=== PATIENT | female | born 1970 | race Caucasian/White ===

== ENCOUNTER 2023-09-14 01:28 | Inpatient (IN) ==
--- NOTE | 2023-09-14 01:57 | Emergency Department Note ---
History of Present Illness General Chief complaint: Abdominal Pain Stated complaint: ABD PAIN Time Seen by Provider: 09/14/23 01:43 History of Present Illness Maximum Pain Intensity: 10 This 53-year-old female who states she is healthy with no active medical problems presents the ER complaining of epigastric pain tonight who had pizza and ice cream cake for dinner. No history of similar symptoms in the past. She had a hysterectomy in the past. Patient denies chest pain, dyspnea, fever, chills, flank pain, radiating pain. Home Medications Medication Instructions Recorded Confirmed Type tirzepatide 10 mg/0.5 mL 10 mg subcut DIRECTED 09/14/23 09/14/23 History subcutaneous pen injector (Mounjaro) Allergies Allergy/AdvReac Type Severity Reaction Status Date / Time No Known Allergies Allergy Unknown Verified 09/14/23 03:14 Past Med/Surg History Social History Smoking Status: Never smoker Preferred Language: Belgian Feels Safe at Home: Yes Review of Systems A total of 10 systems reviewed and were otherwise negative Physical Exam Vital Signs Vital Signs - 24 hr 09/14/23 01:30 09/14/23 01:50 Temperature 36.8 C Temperature Source Temporal Artery Scan Pulse Rate 94 H 96 H Respiratory Rate 18 Respiratory Effort / Characteristics Non-Labored Spontaneous Respiratory Depth Normal Blood Pressure 154/94 H Blood Pressure Mean 114 Pulse Oximetry 100 Oxygen Delivery Method Room Air Sepsis Recent Fever Within 48 Hours No Sepsis New/Unexplained Change in Mental Status No Sepsis Action Taken by Nursing No Action Required VITALS: Vitals are noted on the nurse's note and reviewed by myself. Vital signs stable. GENERAL: Pleasant female, in no acute distress, nondiaphoretic, well-developed well-nourished. SKIN: Capillary reflex less than 2 seconds. HEENT: Normocephalic. PERRLA. EOMI. Nares patent. Mucous membranes moist. Neck is supple without nuchal rigidity. HEART: Regular rate and rhythm LUNGS: Clear to auscultation bilaterally without wheezes, rales or rhonchi. No retractions or accessory muscle use. ABDOMEN: Positive bowel sounds x 4. Normal tympanic percussion. Soft, tender to palpation epigastric region, without masses or organomegaly. No guarding or rebound tenderness. no CVA tenderness MUSCULOSKELETAL: No gross musculoskeletal defects. NEURO: Patient was alert and oriented to person place and time. No focal neurological deficits. Course Administered Medications Discontinued Medications Famotidine (Pepcid 20mg Iv Push) 20 mg in 5 mls @ 2.5 mls/min IV NOW STA Stop: 09/14/23 01:49 Last Admin: 09/14/23 01:58 Dose: 2.5 mls/min Documented By: HARDEEP Sodium Chloride (Nss) 1,000 mls @ 999 mls/hr IV .Q1H1M ONE Stop: 09/14/23 02:48 Last Admin: 09/14/23 01:59 Dose: 999 mls/hr Documented By: HARDEEP Morphine Sulfate (Morphine Sulfate 4 Mg/Ml 1 Ml Carp\\Vial) 4 mg IV NOW STA Stop: 09/14/23 01:49 Last Admin: 09/14/23 01:58 Dose: 4 mg Documented By: HARDEEP Morphine Sulfate (Morphine Sulfate 4 Mg/Ml 1 Ml Carp\\Vial) 4 mg IV NOW STA Stop: 09/14/23 02:46 Last Admin: 09/14/23 02:49 Dose: 4 mg Documented By: HARDEEP Ondansetron HCl (Ondansetron Inj 2 Mg/Ml 2 Ml Vial) 4 mg IV NOW STA Stop: 09/14/23 01:49 Last Admin: 09/14/23 01:58 Dose: 4 mg Documented By: HARDEEP Medical Decision Making Medical Records Attestation: I reviewed the patient's medical records. Home Medications Current Medication List: was personally reviewed by me Laboratory Data Attestation: I reviewed the patient's lab results. 09/14/23 01:50 09/14/23 01:50 Lab Results 09/14/23 Range/Units 01:50 WBC 11.75 H (4.8-10.8) K/ul RBC 4.52 (4.20-5.40) M/uL Hgb 13.2 (12.0-16.0) g/dl Hct 39.8 (37.0-47.0) % MCV 88.1 (80.0-100.0) fL MCH 29.2 (25.0-34.0) pg MCHC 33.2 (32.0-36.0) g/dL RDW Std Deviation 45.8 (36.4-46.3) fL RDW Coeff of Liliana 14.2 (11.5-14.5) % Plt Count 248 (130-400) K/uL MPV 11.0 (9.4-12.4) fL Immature Gran % (Auto) 0.5 % Neut % (Auto) 75.8 % Lymph % (Auto) 16.4 % Pierce % (Auto) 4.7 % Eos % (Auto) 2.3 % Baso % (Auto) 0.3 % Neut # (Auto) 8.91 H (1.40-6.50) K/uL Lymph # (Auto) 1.93 (1.20-3.40) K/uL Pierce # (Auto) 0.55 (0.11-0.59) K/uL Eos # (Auto) 0.27 (0.00-0.50) K/uL Baso # (Auto) 0.03 (0.00-0.20) K/uL Immature Gran # (Auto) 0.06 (0.01-0.20) K/uL Sodium 136 (136-145) mmol/L Potassium 3.8 (3.5-5.1) mmol/L Chloride 106 (98-107) mmol/L Carbon Dioxide 23 (21-32) mmol/L Anion Gap 7 (3-11) BUN 18 (6-23) mg/dl Creatinine 0.72 (0.6-1.2) mg/dl Est Cr Clr Drug Dosing 91.7 ml/min Est GFR ( Amer) 110.8 ml/min Est GFR (Non-Af Amer) 95.6 ml/min BUN/Creatinine Ratio 25.0 H (10-20) Glucose 111 H (70-99(Fasting)) mg/dl Calcium 9.6 (8.6-10.3) mg/dl Total Bilirubin 0.5 (0.2-1.0) mg/dl AST 13 (13-39) U/L ALT 9 (7-52) U/L Alkaline Phosphatase 53 (34-104) U/L Troponin I High Sens 3.7 (0-14) pg/ml Total Protein 7.3 (6.0-8.3) gm/dl Albumin 4.7 (3.4-5.0) gm/dl Globulin 2.6 (2.5-4.0) gm/dl Albumin/Globulin Ratio 1.8 (0.9-2) Lipase 31 (11-82) U/L HCG, Qual Negative (Negative) Imaging Data Attestation: I personally reviewed and interpreted this imaging study as follows: Radiologist's Impression: Gallbladder Ultrasound 09/14/23 01:48 Exam(s): US GALLBLADDER EXAM: US Abdomen Limited, Gallbladder CLINICAL HISTORY: Reason for exam: ruq pain. TECHNIQUE: Real-time ultrasound of the right upper quadrant with image documentation. COMPARISON: No relevant prior studies available. FINDINGS: Gallbladder: Cholelithiasis trace pericholecystic fluid. Gallbladder wall is within normal limits. Gallbladder is distended. Common bile duct: Unremarkable as visualized. No stones. No dilation. Pancreas: Unremarkable as visualized. IMPRESSION: Findings equivocal for early acute cholecystitis. Clinical correlation recommended Electronically signed by: Ramon Hanson MD 09/14/23 03:29 AM MDM Narrative Prior records/ancillary studies reviewed. Triage Nursing notes reviewed. Additional history obtained from family. The patient's history was concerning for epigastric pain. Differential diagnosis: Etiologies such as cardiac ischemia, gallbladder, intra-abdominal, aortic dissection, pulmonary embolism, pneumonia, pneumothorax, musculoskeletal, infections, pericarditis, myocarditis, esophageal rupture, gastrointestinal, as well as others were entertained. Physical examination: As above. ER treatment provided: An order was placed for continuous cardiac monitoring. The monitor shows a rate of 60-100 with a sinus rhythm per my interpretation. Morphine, Zofran, Pepcid and IV fluids were ordered Mefoxin and morphine On reassessment the patient felt better. Diagnostic interpretation by me: The electrocardiogram was negative for pathologic change. Ordered for epigastric pain EKG: Normal sinus, normal intervals, no acute ST-T wave changes. Impression normal sinus rhythm independently interpreted by myself I think arrhythmia is unlikely. EKG shows normal sinus rhythm with no interval abnormalities such as QT prolongation or WPW. There are no findings to suggest Brugada syndrome. Cardiac monitoring in the emergency department reveals no tachycardic or bradycardic dysrhythmia. Hypertrophic cardiomyopathy was considered but there are no clear historical elements pointing toward this. EKG is not suggestive. The QRS voltage is not extremely large and there are no suggestive Q waves. The labs Independently Interpreted by myself revealed negative troponin, normal LFTs Mild leukocytosis Imaging studies: Chest x-ray with no acute consolidation, pneumothorax or free air per my independent interpretation Ultrasound concerning for acute cholecystitis HEART SCORE: Hx: high/mod/low suspicion: 0 ECG: ST depression/nonspecific changes/normal: 0 Age: Greater than 65/45-64/less than 45: 1 Risk factors: (Hypertension, hyperlipidemia, diabetes, coronary disease, tobacco use, cocaine use): 0 Troponin: Greater than 2 times normal limits/1-2 times normal limits/normal: 0 Total: 1 Consultation: A consultation was placed with the surgical midlevel, Anatoly. the case was discussed and diagnostics were reviewed. The patient was evaluated in the ER for further treatment. Exam and history seem consistent with acute cholecystitis. Surgery was consulted and evaluated the patient. Patient was admitted to their service. Patient started antibiotics. She is NPO. She is agreeable treatment plan of admission. By the evaluation outlined above emergent etiologies such as cardiac ischemia, aortic dissection, pulmonary embolism, pneumonia, pneumothorax, pericarditis, myocarditis, gastrointestinal, as well as others were deemed relatively unlikely. The pt informed about the findings as listed above. All questions were answered and pleased with the treatment. The chart was completed utilizing [employer]ish[employer] Speech voice recognition software. Grammatical errors, random word insertions, pronoun errors, and incomplete sentences are an occassional consequence of this system due to software limitations, ambient noise, and hardware issues. Any formal questions or concerns about the content, text, or information contained within the body of this dictation should be directly addressed to the physician diet assistant for clarification. Impression & Plan Acute cholecystitis Discharge Plan Visit Data Chief Complaint: Abdominal Pain Stated Complaint: ABD PAIN ED Provider: Nicole Paredes ED Midlevel Provider: Prachi Ochoa Discharge Problem: Acute cholecystitis Patient Disposition: Being Evaluated by Surgeon Condition: Good Forms Stand Alone Forms: [employer] Prescriptions Prescriptions: No Action Mounjaro 10 mg/0.5 mL pen injector 10 mg SUBCUT DIRECTED Rx Instructions: PER PT "WEANING OFF MEDICATION, HAVEN'T TAKEN FOR 2 WEEKS". Referrals Referrals: PCP,NO [Physician] -
[2023-09-14] MEDS: FAMOTIDINE 20MG IV PUSH 20 MG/5 ML SYR IV STA (01:58)
[2023-09-14] MEDS: MoRPHine SULFATE 4 MG/ML 1 ML CARP\\VIAL IV STA ×2 (01:58→02:49)
[2023-09-14] MEDS: ONDANSETRON INJ 2 MG/ML 2 ML VIAL IV STA (01:58)
[2023-09-14] MEDS: SODIUM CHLORIDE 0.9% 1,000 ML IV ONE (01:59)
[2023-09-14 02:17] LABS: Basophils # (auto) 0.03 K/uL (0.00-0.20); Basophils % (auto) 0.3 %; Eosinophils # (auto) 0.27 K/uL (0.00-0.50); Eosinophils % (auto) 2.3 %; Hematocrit (blood only) 39.8 % (37.0-47.0); Hemoglobin 13.2 g/dl (12.0-16.0); Immature Granulocytes # (auto) 0.06 K/uL (0.01-0.20); Immature Granulocytes % (auto) 0.5 %; Lymphocytes # (auto) 1.93 K/uL (1.20-3.40); Lymphocytes % (auto) 16.4 %; Mean Corpuscular Hemoglobin 29.2 pg (25.0-34.0); Mean Corpuscular Hgb Conc 33.2 g/dL (32.0-36.0); Mean Corpuscular Volume 88.1 fL (80.0-100.0); Monocytes # (auto) 0.55 K/uL (0.11-0.59); Monocytes % (auto) 4.7 %; Neutrophils # (auto) 8.91 K/uL (1.40-6.50); Neutrophils % (auto) 75.8 %; Platelet Count 248 K/uL (130-400); RDW Coefficient of Variation 14.2 % (11.5-14.5); RDW Standard Deviation 45.8 fL (36.4-46.3); Red Blood Count 4.52 M/uL (4.20-5.40); White Blood Count 11.75 K/ul (4.8-10.8)
[2023-09-14 02:26] LABS: Albumin Globulin Ratio 1.8 (0.9-2); Albumin Level 4.7 gm/dl (3.4-5.0); Bilirubin,Total 0.5 mg/dl (0.2-1.0); Calcium 9.6 mg/dl (8.6-10.3); Creatinine Clr Calc Pharmacy 91.7 ml/min; Est GFR (African American) 110.8 ml/min; Est GFR (Non-African American) 95.6 ml/min; Globulin 2.6 gm/dl (2.5-4.0); Potassium 3.8 mmol/L (3.5-5.1); Total Protein 7.3 gm/dl (6.0-8.3)
[2023-09-14 02:29] LABS: Pregnancy Test, Serum Negative (Negative)
[2023-09-14 02:59] LABS: Troponin I High Sensitivity 3.7 pg/ml (0-14)
--- NOTE | 2023-09-14 03:30 | Ultrasound Report ---
Exam(s): US GALLBLADDER EXAM: US Abdomen Limited, Gallbladder CLINICAL HISTORY: Reason for exam: ruq pain. TECHNIQUE: Real-time ultrasound of the right upper quadrant with image documentation. COMPARISON: No relevant prior studies available. FINDINGS: Gallbladder: Cholelithiasis trace pericholecystic fluid. Gallbladder wall is within normal limits. Gallbladder is distended. Common bile duct: Unremarkable as visualized. No stones. No dilation. Pancreas: Unremarkable as visualized. IMPRESSION: Findings equivocal for early acute cholecystitis. Clinical correlation recommended Electronically signed by: Ramon Hanson MD 09/14/23 03:29 AM
--- NOTE | 2023-09-14 03:54 | History & Physical Report ---
Date of Service September 14, 2023 Assessment & Plan (1) Acute cholecystitis: Plan: I discussed with the treating clinician emergency department and the patient be admitted to the surgical service. Will proceed as follows: Implement n.p.o. status provide analgesics provide antiemetics Provide IV fluid for hydration Follow serial labs Antibiotics in form of cefoxitin been initiated we will continue these It appears that the patient may benefit from cholecystectomy. She will be evaluated Dr. Conley morning of 09/14/2023 and a determination about timing of surgery will be made Additional recommendations will be made based on her clinical course as u nfolds SCDs were used for DVT prevention, no chemical means to lose ascertain when the timing of any planned surgery may occur She will be a level 1 full code History of Present Illness Chief Complaint: Abdominal pain Primary Care Provider: Marc Tobin MD This is a 53-year-old female who presented to the emergency department secondary to abdominal pain. She notes that the pain is primary located in the epigastric region and also the right upper quadrant. She notes that this happened several hours after eating her evening meal. She had associated nausea and vomiting but did not have any fevers. She notes that the pain did not radiate and she does not note any modifying factors other than it was relieved with some medicines administered in the emergency department. Asked patient if she has had any postprandial pain over the past several weeks to months which she denied. She has had prior abdominal surgeries in the form of 3 C-sections as well as a hysterectomy. Since arrival to hospital patient has had labs and imaging which independent reviewed. A chest x-ray did not show any evidence of pneumonia. An EKG showed sinus rhythm without changes indicative of acute ischemia. Patient had a gallbladder ultrasound. This showed cholelithiasis and trace pericholecystic fluid. There is no gallbladder wall thickening, however the gallbladder did appear distended. There is no biliary ductal dilatation. Interpreting radiologist felt that these findings potentially represent early acute cholecystitis. Labs include CBC white blood cell count was elevated 11.7. Hemoglobin, hematocrit, platelet count are all normal. Chemistry profile showed sodium and potassium along with BUN and creatinine were normal. There is no elevation of patient's LFTs or lipase. test was negative. At the time of my interview the patient did complain of some residual abdominal pain she was in no distress. Concerning past medical history she denies any medical problems Concerning past surgical history surgeries as listed above Concerning social history she does not smoke Allergies Allergy/AdvReac Type Severity Reaction Status Date / Time No Known Allergies Allergy Unknown Verified 09/14/23 03:14 Home Medications Medication Instructions Recorded Confirmed Type tirzepatide 10 mg/0.5 mL 10 mg subcut DIRECTED 09/14/23 09/14/23 History subcutaneous pen injector (Quiana) Past Med/Surg History Social History Smoking Status: Never smoker Second Hand Exposure: No; Do You Dip or Chew Tobacco: No; Tobacco Cessation Education Requested by Patient: No Hx Alcohol Use: Yes Hx Substance Use: No Preferred Language: Tuvaluan Communication Ability: Effective Servicing Manager Required: No Beliefs That Will Affect Care: None Current Living Situation: Spouse Other Information That Helps Us Care for You: No Feels Safe at Home: Yes Safety Concerns: Feels Safe At This Time Assistive Devices: Glasses Review of Systems Constitutional: no fever and no chills Ear, Nose, Mouth, Throat: no hearing loss Respiratory: no cough and no dyspnea Cardiovascular: no chest pain Gastrointestinal: + abdominal pain, + nausea and + vomitin g Genitourinary: no dysuria Musculoskeletal: no back pain Integumentary: no rash Neurologic: no localized weakness Physical Exam Constitutional: WD/WN, vitals as above Eyes: + anicteric sclerae ENMT: Ears: no hearing impairment and no external ear abnormality Neck: trachea midline Respiratory: normal respiratory effort; no respiratory distress and no labored breathing Cardiovascular: Rate/Rhythm: regular rate and regular rhythm Gastrointestinal (Abdomen): Abdomen is soft and nonrigid. It is nondistended. There is no rebound tenderness or guarding. Patient did have pain with palpation in the epigastric area and also the right upper quadrant. Musculoskeletal: No calf tenderness Skin: no rashes Neurologic: moves all extremities Psychiatric: A+Ox3, euthymic affect Results & Data Results & Data Vital Signs (Past 12 Hours) Vital Signs Temp Pulse Resp BP Pulse Ox O2 Del Method 09/14/23 01:50 96 H 09/14/23 01:30 36.8 C 94 H 18 154/94 H 100 Room Air Supervising Physician Co-Signing Physician Notes See today's progress note for full details. Admitted with suspicion for cholecystitis, plan for laparoscopic cholecystectomy, possible robotic PG Care Time/CCT Total # of Minutes Spent Total Time Spent with Patient: Total time spent is greater than 50% in coordination of care (as documented) at patient's floor/unit and/or counseling patient: Coding Level of Care Code 04588 INT INP/OBS CARE 375MIN Diagnoses Acute cholecystitis K81.0
[2023-09-14] MEDS: MoRPHine SULFATE 4 MG/ML 1 ML CARP\\VIAL IV PRN (04:33)
[2023-09-14] MEDS: cefOXitin 2,000 MG/60 ML BAG IV STA (04:34)
[2023-09-14] MEDS: ONDANSETRON INJ 2 MG/ML 2 ML VIAL IV PRN (04:34)
[2023-09-14 04:55] LABS: Appearance Urine Clear (Clear); Bilirubin Urine Negative (Negative); Blood Urine Negative (Negative); Color Urine Yellow; Glucose Urine UA Negative (Negative); Ketones Urine Trace (Negative); Leukocyte Esterase Urine Negative (Negative); Nitrite Urine Negative (Negative); Protein Urine Negative (Negative); Specific Gravity Urine 1.014 (1.000-1.030); Urobilinogen Urine Negative (Negative)
[2023-09-14] MEDS: SODIUM CHLORIDE 0.9% 1,000 ML IV SCH (05:09)
[2023-09-14 06:22] LABS: Basophils # (auto) 0.04 K/uL (0.00-0.20); Basophils % (auto) 0.3 %; Eosinophils # (auto) 0.09 K/uL (0.00-0.50); Eosinophils % (auto) 0.8 %; Hematocrit (blood only) 36.3 % (37.0-47.0); Hemoglobin 12.1 g/dl (12.0-16.0); Immature Granulocytes # (auto) 0.05 K/uL (0.01-0.20); Immature Granulocytes % (auto) 0.4 %; Lymphocytes # (auto) 1.41 K/uL (1.20-3.40); Lymphocytes % (auto) 11.9 %; Mean Corpuscular Hemoglobin 29.4 pg (25.0-34.0); Mean Corpuscular Hgb Conc 33.3 g/dL (32.0-36.0); Mean Corpuscular Volume 88.1 fL (80.0-100.0); Mean Platelet Volume 10.8 fL (9.4-12.4); Monocytes # (auto) 0.59 K/uL (0.11-0.59); Neutrophils # (auto) 9.69 K/uL (1.40-6.50); Neutrophils % (auto) 81.6 %; Platelet Count 204 K/uL (130-400); RDW Standard Deviation 45.2 fL (36.4-46.3); Red Blood Count 4.12 M/uL (4.20-5.40); White Blood Count 11.87 K/ul (4.8-10.8)
[2023-09-14 06:35] LABS: Albumin Globulin Ratio 1.8 (0.9-2); BUN Creatinine Ratio 20.6 (10-20); Bilirubin,Total 0.4 mg/dl (0.2-1.0); Calcium 8.6 mg/dl (8.6-10.3); Creatinine Clr Calc Pharmacy 96.8 ml/min; Est GFR (African American) 115.7 ml/min; Est GFR (Non-African American) 99.9 ml/min; Globulin 2.2 gm/dl (2.5-4.0); Potassium 4.4 mmol/L (3.5-5.1); Total Protein 6.2 gm/dl (6.0-8.3)
--- NOTE | 2023-09-14 07:18 | XRay Report ---
XR chest 1V portable HISTORY: 53 years-old Female epi pain acute chest and upper abdominal pain COMPARISON: 09/23/2012 TECHNIQUE: AP view of the chest FINDINGS: Cardiomediastinal and hilar silhouettes are within normal limits. No pneumothorax, pleural effusion o r airspace consolidation. Bones of the chest appear grossly intact. IMPRESSION: No acute process. ACT 112: Negative or not required by law. The above report was generated using voice recognition software. It may contain grammatical, syntax o r spelling errors. Electronically signed by: Hunter Brown M.D. 09/14/2023 7:16 AM
--- OUTSIDE RECORDS SUMMARY | 2023-09-14 08:09 | External Medical Summary | Summary of Care ---
Author Name Unknown Organization [facility] Address [address] [facility] [address] Phone [phone] Care Team Providers Care Carton Forming Machine Tender Name Role Phone Marc Tobin MD Primary Care Provider [phone] Reason for Visit * Reason Onset Date Comments Medication Refill 05/09/2023 Encounter Details Date Type Department Care Team Description [facility]23 [facility] [address] [id number] Marc Tobin MD [address] [place] [address] Medication Refill Allergies No known active allergiesdocumented as of this encounter (statuses as of 05/10/2023) Medications Medication Sig Dispensed Refills Start Date End Date Status Clindamycin Phosphate 1 % External GelIndications:H/O acne,Acne scarring Apply to face in morning as spot treatment to larger acne lesions as instructed on checkout sheet 30 g 2 12/02/2020 Active Ondansetron HCl 4 MG Oral TabletIndications:N ausea Take by mouth 1 Tablet every 12 hours as needed for Nausea. 30 Tablet 1 09/30/2021 Active Tretinoin 0.1 % External CreamIndications:Ac ne vulgaris Apply to face every night. 45 g 5 04/25/2022 Active Phentermine HCl 37.5 MG Oral TabletIndications:O besity, Class I, BMI 30.0-34.9 (see actual BMI) Take 1 Tablet by mouth daily before breakfast. Not to be taken longer than 12 weeks. 30 Tablet 1 10/02/2022 Active Spironolactone 50 MG Oral Tablet (Aldactone) TAKE 1 TABLET BY MOUTH TWICE DAILY WITH OR WITHOUT FOOD 60 Tablet 3 10/23/2022 Active Mounjaro 10 MG/0.5ML Subcutaneous Solution Pen-injector (Tirzepatide) Inject 10 mg under the skin once a week. 2 mL 11 04/19/2023 04/18/2024 Active Mounjaro 7.5 MG/0.5ML Subcutaneous Solution Pen-injector (Tirzepatide) Inject 7.5 mg under the skin once a week. 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 10/04/2006 ADJ DISORDER W/DEPRES MOOD 12/21/2004 Other acne 11/10/2003 documented as of this encounter (statuses as of 05/10/2023) Resolved Problems Problem Noted Date Resolved Date Simple endometrial hyperplasia without atypia 07/04/2012 Simple endometrial hyperplasia without atypia 09/29/2020 Internal hemorrhoids with other complication 09/29/2020 Sciatica 08/04/2008 09/29/2020 Spasm of muscle 08/04/2008 09/29/2020 Backache 08/04/2008 09/29/2020 Polyneuropathy in other diseases classified else where 10/04/2006 10/14/2022 Lumbago 10/04/2006 09/29/2020 documented as of this encounter (statuses as of 05/10/2023) Immunizations Name Administration Dates Next Due SEASONAL INFLUENZA, PF, 6 M & Above, IM , (FLULAVAL or FLUZONE) 09/29/2020,04/16/2019(Deferred: Contraindication - not available per pharmacy) Seasonal Influenza, Split, I IV3, With Preserve, Inj 05/01/2012,06/01/2011,05/26/2009,2000 TD - Tetanus/Diptheria (ADULT) 07/24/2001 TD, Preservative Free 09/30/2021 TDAP (age 11 and older)(Adacel) 08/29/2011 08/29/2021 Zoster Vaccine Recombinant (Shingrix) 03/03/2021,09/29/2020 documented as of this encounter Social History Tobacco Use Types Packs/Day Years Used Date Smoking Tobacco: Never Smokeless Tobacco: Never Alcohol Use Standard Drinks/Week Comments Yes 0 (1 standard drink = 0.6 oz pur e alcohol) social Food Insecurity Answer Date Recorded Within the past 12 months, y ou worried that your food would run out before you got money to buy more. Never true 02/08/2022 Within the past 12 months, t he food you bought just didn't last and you didn't have money to get more. Never true 02/08/2022 Sex Assigned at Date Recorded Female 10/22/2018 11:14 AM EDT Job Start Date Occupation Industry Not on file Not on file Not on file documented as of this encounter Miscellaneous Notes * Telephone Encounter - Richelle Mathis LPN - 05/10/2023 2:06 PM EDT Attempted to call pt - no voicemail set up. Unable to leave message Please try again later * Telephone Encounter - Marc Tobin MD - 05/09/2023 3:36 PM EDT Please let pt know that we sent a refill for the 7.5 mg dose because they did not have the 10 mg dose in stock. If she wants to try and find the 10 mg at other pharmacies, that is fine - she should let us know if she finds a pharmacy with it in stock and we can send the 10 mg dose there. She could also continue on the 7.5 mg dose and periodically check with current pharmacy to see if they get the10 mg in stock. * Telephone Encounter - JASMYNE Pulido - 05/09/2023 3:32 PM EDT Please advise as below. Thank you. * Telephone Encounter - JUAN R Ku - 05/09/2023 2:19 PM EDT RE Mounjaro 10 MG/0.5ML Subcutaneous Solution Pen-injector (Tirzepatide Pt calling - pharmacy does not have instock Pharmacy suggested changing rx to Mounjaro 7.5MG/0.5ML Subcutaneous Solution Pen-injector (Tirzepatide I tired calling [facility] to see if they have int stock but they don't Please advise Thank you for your assistance Destini Marino Licensed Practical Vocational Nurse II [facility] ([facility]) 05/09/2023,2:22 PM documented in this encounter Plan of Treatment Scheduled Procedures Name Priority Associated Diagnoses Date/Ti me COLONOSCOPY FLEXIBLE PROXIMAL DIAGNOSTIC Recall History of colon polyps Health Maintenance Due Date Last Done Comments Hepatitis B (1 of 3 - 3-dose series) 1970 COVID-19 Vaccine (#1) 02/15/1971 Hepatitis C Screening 1988 Depression Screening 04/10/2019 04/10/2018 Mammogram 10/30/2019 10/29/2018, 02/04, 02/16/2015, Additional history exists COLONOSCOPY-EVERY 5 YRS AGES 18-100 08/17/2021 08/17/2016, 08/17/2016 Influenza Vaccine (FLU shot) (#1) 2023 09/29/2020, 05/01/2012, 06/01/2011, Additional history exists Diabetes Screening 10/02/2025 10/02/2022, 0 02/15/2022, 04/15/2019, Additional history exists Lipid Panel 02/15/2027 02/15/2022, 08/29/2011 DTaP,Tdap,and Td Vaccines (3 - Td or Tdap) 09/30/2031 09/30/2021, 08/29/2011, 07/24/2001 Zoster Vaccines Completed 03/03/2021, 09/29/2020 GARDASIL-HPV IMMUNIZATION SERIES Aged Out No longer eligible based on patient's age to complete this topic MENINGOCOCCAL (MENACTRA/MENVEO) Aged Out No longer eligible based on patient's age to complete this topic Pneumococcal Vaccine: Pediatrics (0 to 5 Years) and At-Risk Patients (6 to 64 Years) Aged Out No longer eligible based on patient's age to complete this topic documented as of this encounter Medical Devices Not on filedocumented as of this encounter Advance Directives Latest Code Status on File Code Status Date Activated Date Inactivated Comments Full Code 04/15/2019 4:18 PM 04/16/2019 4:47 PM Question Answer Comments Discussion of Advance Direct jeanna occurred with: Not Discussed Care Teams Carton Forming Machine Tender Relationship Specialty Start Date End Date Marc Tobin MD [address], [place] [id number] PCP - General 05/24/00 documented as of this encounter
--- OUTSIDE RECORDS SUMMARY | 2023-09-14 08:09 | External Medical Summary | Summary of Care ---
Author Name Unknown Organization [facility] Address [address] [facility] [address] Phone [phone] Care Team Providers Care Fruit Sprayer Name Role Phone Marc Clark MD Primary Care Provider +1- [phone] Reason for Visit * Reason Onset Date Comments Medication Refill 04/17/2023 Encounter Details Date Type Department Care Team Description 04/17/[address] [facility] [address] [place] [address] Marc Clark MD [address] [place] [address] Allergies No known active allergiesdocumented as of this encounter (statuses as of 04/19/2023) Medications Medication Sig Dispensed Refills Start Date End Date Status Clindamycin Phosphate 1 % External GelIndications:H/O acne,Acne scarring Apply to face in morning as spot treatment to larger acne lesions as instructed on checkout sheet 30 g 2 12/02/2020 Active Ondansetron HCl 4 MG Oral TabletIndications: Nausea Take by mouth 1 Tablet every 12 hours as needed for Nausea. 30 Tablet 1 09/30/2021 Active Tretinoin 0.1 % External CreamIndications:A cne vulgaris Apply to face every night. 45 g 5 04/25/2022 Active Phentermine HCl 37.5 MG Oral TabletIndications: Obesity, Class I, BMI 30.0-34.9 (see actual BMI) [...] once a week. 2 mL 11 04/19/2023 4 Active Mounjaro 7.5 MG/0.5ML Subcutaneous Solution Pen-injector (Tirzepatide) Inject 7.5 mg under the skin once a week. 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 12/21/2004 Other acne 11/10/2003 documented as of this encounter (statuses as of 04/19/2023) Resolved Problems Problem Noted Date Resolved Date Simple endometrial hyperplasia without atypia 07/04/2012 Simple endometrial hyperplasia without atypia 09/29/2020 Internal hemorrhoids with other complication 09/29/2020 Sciatica 08/04/2008 09/29/2020 Spasm of muscle 08/04/2008 09/29/2020 Backache 08/04/2008 09/29/2020 Polyneuropathy in other diseases classified else where 10/04/2006 10/14/2022 Lumbago 10/04/2006 09/29/2020 documented as of this encounter (statuses as of 04/19/2023) Immunizations Name Administration Dates Next Due Seasonal Influenza, PF, 6 mo ns & Above, IM , (Flulaval) 09/29/2020,04/16/2019(Deferred: Contraindication - not available per pharmacy) Seasonal Influenza, Split, I IV3, With Preserve, Inj 05/01/2012,06/01/2011,05/26/2009 TD, Preservative Free 09/30/2021 TDAP (age 11 [...] encounter Miscellaneous Notes * Telephone Encounter - Marc Clark MD - 04/19/2023 1:45 PM EDTSigned Prescriptions: Disp Refills Mounjaro 10 MG/0.5ML Subcutaneous Solution*2 mL 11 Sig: Inject 10 mg under the skin once a week.Authorizing Provider: MARC CLARK * Telephone Encounter - Hunter Fan RPh - 04/19/2023 10:18 AM EDTPending Prescriptions: Disp Refills Mounjaro 10 MG/0.5ML Subcutaneous Solution*2 mL 11 Sig: Inject 10 mg under the skin once a week. * Telephone Encounter - Hunter Fan RP - 04/19/2023 10:14 AM EDT Patient is requesting dose increase. Rx pended. Please approve if appropriate Thanks, Hi Fan, PharmD Clinical Pharmacist [facility] ([facility]) (Formerly [facility]) [phone] 04/19/2023 10:18 AM documented in this encounter Plan of Treatment [...] jeanna occurred with: Not Discussed Care Teams Fruit Sprayer Relationship Specialty Start Date End Date Marc Clark MD [address] [place] [address] PCP - General 05/24/00 documented as of this encounter
--- OUTSIDE RECORDS SUMMARY | 2023-09-14 08:09 | External Medical Summary | Summary of Care ---
Author Name Unknown Organization [facility] Address [address] [facility] [address] Phone [phone] Care Team Providers Care Health And Wellness Coordinator Name Role Phone Marc Tobin MD Primary Care Provider +1- [phone] Reason for Visit * Reason Onset Date Comments Medication Refill 05/09/2023 Encounter Details Date Type Department Care Team Description [facility] 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 12/21/2004 Other acne 11/10/2003 documented as of this encounter (statuses as of 05/16/2023) Resolved Problems Problem Noted Date Resolved Date Simple endometrial hyperplasia without atypia 07/04/2012 Simple endometrial hyperplasia without atypia 09/29/2020 Internal hemorrhoids with other complication 09/29/2020 Sciatica 08/04/2008 09/29/2020 Spasm of muscle 08/04/2008 09/29/2020 Backache 08/04/2008 09/29/2020 Polyneuropathy in other diseases classified else where 10/04/2006 10/14/2022 Lumbago 10/04/2006 09/29/2020 documented as of this encounter (statuses as of 05/16/2023) Immunizations Name Administration Dates Next Due SEASONAL [...] encounter Miscellaneous Notes * Telephone Encounter - Shy Gleason LPN - 05/16/2023 8:44 AM EDT Patient aware and verbalized understanding, will comply * Telephone Encounter - Richelle Mathis LPN [...] Thank you for your assistance Destini Marino Certified Prosthetist II [facility] ([facility]) (Formerly [...] jeanna occurred with: Not Discussed Care Teams Health And Wellness Coordinator Relationship Specialty Start Date End Date Marc Tobin MD [address] [place] [address] PCP - General 05/24/00 documented as of this encounter
--- OUTSIDE RECORDS SUMMARY | 2023-09-14 08:09 | External Medical Summary | Summary of Care ---
Author Name Unknown Organization [facility] Address [address] [facility] [address] Phone [phone] Care Team Providers Care Hog Handler Name Role Phone Marc Tobin MD Primary Care Provider +1- [phone] Reason for Visit * Reason Onset Date Comments Medication Refill 05/09/2023 Encounter Details Date Type Department Care Team Description 05/09/2023 [facility] [address] [address] Marc Tobin MD [address] [place] [address] Medication Refill Allergies No known [...] Miscellaneous Notes * Telephone Encounter - Marc Tobin MD [...] * Telephone Encounter - JUAN R Ku Tech - 05/09/2023 2:19 PM EDT RE Mounjaro 10 MG/0.5ML Subcutaneous Solution Pen-injector (Tirzepatide Pt calling - pharmacy does not have instock Pharmacy suggested changing rx to Mounjaro 7.5MG/0.5ML Subcutaneous Solution Pen-injector (Tirzepatide I tired calling [facility] to see if they have int stock but they don't Please advise Thank you for your assistance Destini Marino Laboratory Chemical Assistant II [facility] ([facility]) (Formerly [...] jeanna occurred with: Not Discussed Care Teams Hog Handler Relationship Specialty Start Date End Date Marc Tobin MD [address] [facility] [place] [address] PCP - General 05/24/00 documented as of this encounter
--- NOTE | 2023-09-14 10:46 | Electrocardiogram Report ---
Test Reason : Blood Pressure : / mmHG Vent. Rate : 099 BPM Atrial Rate : 099 BPM P-R Int : 158 ms QRS Dur : 078 ms QT Int : 350 ms P-R-T Axes : 072 061 068 degrees QTc Int : 449 ms Normal sinus rhythm Normal ECG No previous ECGs available Confirmed by Charlie Reynaga ([id number]) on 09/14/2023 10:45:53 AM Referred By: REFERRED SELF Confirmed By:Charlie Reynaga
[2023-09-14] MEDS: cefOXitin 2,000 MG in DEXTROSE 5 % MINI-B 50 ML IV SCH (11:12)
[2023-09-14] MEDS: LACTATED RINGER'S 1,000 ML IV SCH (12:19)
[2023-09-14] MEDS ORDERED: ePHEDrine sulfate 50 MG/ML AMP IV PRN (12:31)
[2023-09-14] MEDS ORDERED: ATROPINE SULFATE 0.1 MG/ML 10ML SYR IV PRN (12:31)
[2023-09-14] MEDS ORDERED: fentaNYL citrate PF 100 MCG/2 ML VIAL IV PRN (12:31)
[2023-09-14] MEDS ORDERED: ONDANSETRON INJ 2 MG/ML 2 ML VIAL IV PRN (12:31)
--- NOTE | 2023-09-14 12:31 | Anesthesiology Consultation ---
Date of Service September 14, 2023 Assessment & Plan ASA ASA1 Proposed Anesthesia Anesthesia Type: General Risk / Benefits Reviewed With: PT / POA / Parent / Guardian, Accepts Plan and Informed Consent Obtained History Surgery Operation Date: 09/14/23 10:30 Proposed Procedures p Laparoscopic Cholecystectomy - Kranthi Conley DO, FACS Height/Weight Height: 5 ft 6 in Weight: 71.3 kg Allergies Allergy/AdvReac Type Severity Reaction Status Date / Time No Known Allergies Allergy Unknown Verified 09/14/23 03:14 Medications Home Medications Medication Instructions Recorded Confirmed Last Taken tirzepatide 10 mg/0.5 mL 10 mg subcut DIRECTED 09/14/23 09/14/23 Unknown subcutaneous pen injector (Titiunjuanro) Active Medications Generic Name Dose Route Start Last Admin Trade Name Freq PRN Reason Stop Dose Admin Sodium Chloride 1,000 mls @ 100 mls/hr 09/14/23 04:00 09/14/23 05:09 Nss IV 10/14/23 03:59 100 mls/hr .Q10H MAXI Administration Cefoxitin Sodium 2,000 mg/ 50 mls @ 100 mls/hr 09/14/23 10:00 09/14/23 11:45 Dextrose IV 09/24/23 09:59 Infused Q6H MAXI Infusion Protocol Lactated Ringer's 1,000 mls @ 15 mls/hr 09/14/23 12:30 09/14/23 12:19 Lr IV 10/14/23 12:29 15 mls/hr .Q24H MAXI Administration Morphine Sulfate 3 mg 09/14/23 03:54 09/14/23 11:09 Morphine Sulfate 4 Mg/Ml 1 Ml Carp\Vial IV 09/28/23 03:53 3 mg Q3H PRN Administration Severe Pain (Scale 7, 8, 9,10) Ondansetron HCl 4 mg 09/14/23 03:54 09/14/23 11:14 Ondansetron Inj 2 Mg/Ml 2 Ml Vial IV 10/14/23 03:53 4 mg Q6H PRN Administration Nausea And Vomiting NPO Date Last Intake of Fluids: 09/13/23 Time Last Intake of Fluids: 00:00 Date Last Intake of Solids: 09/14/23 Time Last Intake of Solids: 00:00 Exercise / Class Metabolic Activity II 4-5 Yardwork/Stairs/Walk up hill Past Anesthesia History No Hx of Anesthesia Complications and No Family Hx of Anesthesia Complications History of PONV No Hx of PONV and No Hx of Motion Sickness Social History Smoking Status: Never smoker Do You Dip or Chew Tobacco: No Hx Alcohol Use: Yes alcohol intake frequency: holidays/special occasions only Hx Substance Use: No Review of Systems denies fever/cough/ colds/ chest pain/ SOB/ JUSTIN denies JUSTIN Physical Exam Vital Signs Last Vital Signs Temp 36.5 C 09/14/23 12:10 Pulse 84 09/14/23 12:10 Resp 20 09/14/23 12:10 BP 107/63 09/14/23 12:10 Pulse Ox 99 09/14/23 12:10 O2 Del Method Room Air 09/14/23 12:10 ENMT Mouth: no TMJ abnormality and no dentition abnormality Thyromental Distance: > or= 3.5 Finger Breadths Mallampati Class: II Neck neck extension not limited Respiratory normal respiratory effort; no respiratory distress Auscultation: lungs clear to auscultation bilaterally Cardiovascular Rate/Rhythm: regular rate and regular rhythm Neurologic moves all extremities Psychiatric Orientation: alert and oriented x 3 Testing Laboratory Results 09/14/23 06:04 09/14/23 06:04 Urine Color Yellow 09/14/23 02:50 Urine Appearance Clear (Clear) 09/14/23 02:50 Urine pH 7.0 (4.5-7.5) 09/14/23 02:50 Ur Specific [place] 1.014 (1.000-1.030) 09/14/23 02:50 Urine Protein Negative (Negative) 09/14/23 02:50 Urine Glucose (UA) Negative (Negative) 09/14/23 02:50 Urine Ketones Trace (Negative) H 09/14/23 02:50 Urine Nitrite Negative (Negative) 09/14/23 02:50 Ur Leukocyte Esterase Negative (Negative) 09/14/23 02:50
--- NOTE | 2023-09-14 12:34 | Surgery Progress Note ---
Date of Service September 14, 2023 Assessment & Plan (1) Acute cholecystitis: Plan: Cholelithiasis with cholecystitis plan for laparoscopic cholecystectomy with possible cholangiogram, possible robotic risks discussed to include but not limited to bleeding, infection, retained stone, bile leak, open surgery, damage to surrounding structures including bile duct, need for future or more extensive surgery, failure to treat symptoms, and risks of anesthesia. Potential discharge this afternoon or tomorrow Dr. Forde covering over week Wound care instructions, activity restrictions, and return precautions given Follow-up with me in 2-week Admission and Anticipated Discharge Date Admission Date: September 14, 2023 Subjective Patient admitted overnight for cholelithiasis with suspected cholecystitis. Still with some pain. Physical Exam Constitutional: WD/WN, vitals as above Gastrointestinal (Abdomen): Percussion/Palpation: + abdomen tender (Right upper quadrant tenderness) and abdomen soft; no guarding and abdomen not rigid Results & Data Vital Signs (Past 12 Hours) Vital Signs Temp Pulse Pulse Pulse Resp BP BP 09/14/23 12:10 36.5 C 84 20 09/14/23 11:55 36.9 C 110/66 09/14/23 08:00 36.8 C 80 14 09/14/23 05:14 36.7 C 80 18 124/76 09/14/23 04:43 87 18 143/84 H 09/14/23 01:50 96 H 09/14/23 01:30 36.8 C 94 H 18 154/94 H BP Pulse Ox O2 Del Method 09/14/23 12:10 107/63 99 Room Air 09/14/23 11:55 97 Room Air 09/14/23 08:00 136/70 99 Room Air 09/14/23 05:14 100 Room Air 09/14/23 04:43 96 Room Air 09/14/23 01:50 09/14/23 01:30 100 Room Air Laboratory Results Laboratory Results - last 24 hr 09/14/23 09/14/23 09/14/23 01:50 02:50 06:04 WBC 11.75 H 11.87 H RBC 4.52 4.12 L Hgb 13.2 12.1 Hct 39.8 36.3 L MCV 88.1 88.1 MCH 29.2 29.4 MCHC 33.2 33.3 RDW Std Deviation 45.8 45.2 RDW Coeff of Liliana 14.2 14.0 Plt Count 248 204 MPV 11.0 10.8 Immature Gran % (Auto) 0.5 0.4 Neut % (Auto) 75.8 81.6 Lymph % (Auto) 16.4 11.9 Rankin % (Auto) 4.7 5.0 Eos % (Auto) 2.3 0.8 Baso % (Auto) 0.3 0.3 Neut # (Auto) 8.91 H 9.69 H Lymph # (Auto) 1.93 1.41 Rankin # (Auto) 0.55 0.59 Eos # (Auto) 0.27 0.09 Baso # (Auto) 0.03 0.04 Immature Gran # (Auto) 0.06 0.05 Sodium 136 137 Potassium 3.8 4.4 Chloride 106 109 H Carbon Dioxide 23 25 Anion Gap 7 3 BUN 18 14 Creatinine 0.72 0.68 Est Cr Clr Drug Dosing 91.7 96.8 Est GFR ( Amer) 110.8 115.7 Est GFR (Non-Af Amer) 95.6 99.9 BUN/Creatinine Ratio 25.0 H 20.6 H Glucose 111 H 110 H Calcium 9.6 8.6 Total Bilirubin 0.5 0.4 AST 13 12 L ALT 9 7 Alkaline Phosphatase 53 46 Troponin I High Sens 3.7 Total Protein 7.3 6.2 Albumin 4.7 4.0 Globulin 2.6 2.2 L Albumin/Globulin Ratio 1.8 1.8 Lipase 31 14 HCG, Qual Negative Urine Color Yellow Urine Appearance Clear Urine pH 7.0 Ur Specific [place] 1.014 Urine Protein Negative Urine Glucose (UA) Negative Urine Ketones Trace H Urine Blood Negative Urine Nitrite Negative Urine Bilirubin Negative Urine Urobilinogen Negative Ur Leukocyte Esterase Negative PG Care Time/CCT Total # of Minutes Spent Total Time Spent with Patient: Total time spent is greater than 50% in coordination of care (as documented) at patient's floor/unit and/or counseling patient: Coding Level of Care Code 59402 SUB INP/OBS CARE 235MIN Diagnoses Acute cholecystitis K81.0
[2023-09-14] MEDS ORDERED: MIDAZOLAM HCL 1 MG/ML 2ML VIAL ONE (13:14)
[2023-09-14] MEDS ORDERED: fentaNYL citrate PF 100 MCG/2 ML VIAL ONE (13:14)
[2023-09-14] MEDS ORDERED: ROCURONIUM BROMIDE 10 MG/ML 5 ML VIAL IV ONE (14:01)
[2023-09-14] MEDS ORDERED: SUGAMMADEX SODIUM 200 MG/2 ML VIAL IV ONE (14:01)
[2023-09-14] MEDS ORDERED: PROPOFOL IV EMULSION 10 MG/ML 20 ML VIAL IV ONE (14:01)
[2023-09-14] MEDS ORDERED: DEXAMETHASONE SOD INJ 4 MG/ML VIAL ONE (14:01)
[2023-09-14] MEDS ORDERED: ONDANSETRON INJ 2 MG/ML 2 ML VIAL ONE (14:01)
[2023-09-14] MEDS ORDERED: LIDOCAINE 2% 2 ML VIAL/AMP(20MG/ML) INFIL ONE (14:01)
[2023-09-14] MEDS: LIDOCAINE 1% LOCAL 20 ML VIAL ONE (14:02)
[2023-09-14] MEDS ORDERED: KETOROLAC 30 MG/ML VIAL ONE (14:20)
[2023-09-14] MEDS: BUPIVACAINE 0.5 % 5 MG/1 ML MPF 30ML VIAL ONE (14:24)
--- NOTE | 2023-09-14 14:27 | Operative Report ---
PG Post Operative Report Pre & Post Diagnosis Operation Date: 09/14/23 10:30 Pre-Op Diagnosis: Acute cholecystitis Post-Op Diagnosis: Acute cholecystitis I identified the patient and participated in the time-out.: Yes Procedure Operation Date: 09/14/23 10:30 Actual Procedures p Laparoscopic Cholecystectomy - Kranthi Conley DO, FACS Surgeon Kranthi Conley DO, FACS Rope Maker Lissy Peña Estimated Blood Loss 5 Findings Consistent with Post-Op Diagnosis Acutely inflamed gallbladder. Critical view of safety obtained, cystic duct and artery clipped and divided. Good hemostasis. Specimens Gallbladder Anesthesia Type General Complications none Disposition Accompanied Patient To Recovery: No Disposition: Recovery Room Indications 53-year-old female presented with signs symptoms of acute cholecystitis, plan for laparoscopic cholecystectomy. The risks of the procedure were discussed, all questions were answered, and the patient agreed to proceed with surgery as planned. Description of Procedure The patient was properly identified, consented, and taken to the operating room where she was placed in the supine position. General endotracheal anesthesia was induced. SCDs and a safety belt were placed. Preoperative antibiotics were administered. The patient's abdomen was prepped and draped in the standard sterile fashion. A surgical timeout was performed and all parties were in agreement that this was the correct patient and procedure to be performed and we continued as planned. An incision was made superior and to the left of the umbilicus overlying the rectus muscle and the Veress needle was inserted. Saline drop test confirmed entry into the peritoneum. The abdomen was insufflated with carbon dioxide which the patient tolerated without incident. The abdomen was then entered using the Optiview technique and a 5 mm trocar. The laparoscope was inserted and no damage from initial trocar or Veress needle placement was noted, no gross abnormalities were noted within the 4 quadrants of the abdomen. An 11 mm port was placed in the subxiphoid position and two 5 mm ports were then placed in the right subcostal position. The patient was placed in reverse Trendelenburg position and rotated towards the left. The gallbladder was acutely inflamed. It had some patchy erythema. The dome of the gallbladder was retracted towards the left upper quadrant and the infundibulum was retracted toward the right lower quadrant revealing Calot's triangle. Peritoneal attachments were taken down with electrocautery and blunt dissection. The cystic duct and artery were circumferentially dissected. A window of safety was obtained showing the cystic duct entering the gallbladder with no aberrant structures noted. There was quite a lot of inflammation along the cystic duct and the artery was difficult to dissect free. The cystic duct and artery were doubly clipped and divided. The gallbladder was then lifted off the gallbladder fossa with electrocautery. The gallbladder was placed in an Endo Catch bag and removed through the subxiphoid port site. The right upper quadrant was irrigated and hemostasis was found to be good. 5 mm trochars were removed under direct visualization and the abdomen was allowed to collapse. The subsite port site fascia was closed with 0 Vicryl suture utilizing a Jose F- Jose device prior to removal of the port. The wound was irrigated, and the skin of all ports was closed with 4-0 Monocryl subcuticular sutures. Dermabond was placed over the wounds. The patient was extubated in the operating room and taken to the PACU where she recovered without apparent incident. All sponge, instrument and needle counts were correct at the conclusion of the procedure. The patient tolerated the procedure well. The physician's visitor information assistant was present and scrubbed for the entirety of the case and was essential in positioning the patient, prepping and draping, retraction and exposure, driving the laparoscope, removal of the gallbladder, closure the incisions, and placement of the dressings. I attest to the content of the Intraoperative Record and any orders documented therein. Any exceptions are noted below.
--- NOTE | 2023-09-14 15:07 | Anesthesiology Progress Note ---
Date of Service September 14, 2023 Anesthesia Post Procedure Vital Signs Vital Signs: Temp Pulse Pulse Pulse Resp BP BP 09/14/23 14:55 86 15 129/81 09/14/23 14:45 89 17 116/79 09/14/23 14:37 36.8 C 71 17 98/59 L 09/14/23 12:10 36.5 C 84 20 09/14/23 11:55 36.9 C 110/66 09/14/23 08:00 36.8 C 80 14 09/14/23 05:14 36.7 C 80 18 124/76 09/14/23 04:43 87 18 143/84 H 09/14/23 01:50 96 H 09/14/23 01:30 36.8 C 94 H 18 154/94 H BP Pulse Ox O2 Del Method O2 Flow Rate 09/14/23 14:55 98 Room Air 09/14/23 14:45 93 Room Air 09/14/23 14:37 100 Oxymask 5 09/14/23 12:10 107/63 99 Room Air 09/14/23 11:55 97 Room Air 09/14/23 08:00 136/70 99 Room Air 09/14/23 05:14 100 Room Air 09/14/23 04:43 96 Room Air 09/14/23 01:50 09/14/23 01:30 100 Room Air Pain Intensity Right Abdomen: Pain Intensity: 2 Transfer of Care Handoff Completed per policy Notes Mental Status: alert / awake / arousable Patient Amnestic to Procedure: Yes Nausea / Vomiting: adequately controlled Pain: adequately controlled Airway Patency, RR, SpO2: stable & adequate BP & HR: stable & adequate Hydration State: stable & adequate Anesthetic Complications: no major complications apparent
[2023-09-14] MEDS ORDERED: MoRPHine SULFATE 4 MG/ML 1 ML CARP\\VIAL IV PRN (15:41)
[2023-09-14] MEDS ORDERED: MoRPHine SULFATE 2 MG/ML CARP IV PRN (15:41)
[2023-09-14] MEDS: ACETAMINOPHEN 1,000 MG/100 ML VIAL IV PRN (20:00)
[2023-09-15 07:07] LABS: Basophils # (auto) 0.02 K/uL (0.00-0.20); Basophils % (auto) 0.2 %; Eosinophils # (auto) 0.02 K/uL (0.00-0.50); Eosinophils % (auto) 0.2 %; Hematocrit (blood only) 33.5 % (37.0-47.0); Hemoglobin 11.2 g/dl (12.0-16.0); Immature Granulocytes # (auto) 0.03 K/uL (0.01-0.20); Immature Granulocytes % (auto) 0.3 %; Lymphocytes # (auto) 1.39 K/uL (1.20-3.40); Lymphocytes % (auto) 13.8 %; Mean Corpuscular Hemoglobin 29.5 pg (25.0-34.0); Mean Corpuscular Hgb Conc 33.4 g/dL (32.0-36.0); Mean Corpuscular Volume 88.2 fL (80.0-100.0); Mean Platelet Volume 10.8 fL (9.4-12.4); Monocytes # (auto) 0.43 K/uL (0.11-0.59); Monocytes % (auto) 4.3 %; Neutrophils # (auto) 8.15 K/uL (1.40-6.50); Neutrophils % (auto) 81.2 %; Platelet Count 181 K/uL (130-400); RDW Coefficient of Variation 14.6 % (11.5-14.5); RDW Standard Deviation 47.2 fL (36.4-46.3); White Blood Count 10.04 K/ul (4.8-10.8)
[2023-09-15 08:01] LABS: Albumin Globulin Ratio 1.8 (0.9-2); Albumin Level 3.5 gm/dl (3.4-5.0); BUN Creatinine Ratio 14.3 (10-20); Bilirubin,Total 1.1 mg/dl (0.2-1.0); Calcium 8.4 mg/dl (8.6-10.3); Creatinine Clr Calc Pharmacy 104.5 ml/min; Est GFR (African American) 118.7 ml/min; Est GFR (Non-African American) 102.4 ml/min; Potassium 4.2 mmol/L (3.5-5.1); Total Protein 5.5 gm/dl (6.0-8.3)
--- NOTE | 2023-09-15 11:52 | Surgery Progress Note ---
Date of Service September 15, 2023 Assessment & Plan (1) Acute cholecystitis: Plan: Clinically she is doing great however her LFTs have all resolved. I am recommending we keep her another day and repeat LFTs tomorrow. She is agreeable. Admission and Anticipated Discharge Date Admission Date: September 14, 2023 Subjective Patient is postoperative day #1 from a cholecystectomy. She is feeling well and would like to go home. Physical Exam Physical Exam: Alert no acute distress Incisions all look good Results & Data Vital Signs (Past 12 Hours) Vital Signs Temp Pulse Resp BP BP Pulse Ox O2 Del Method 09/15/23 11:13 36.5 C 74 16 109/70 100 Room Air 09/15/23 07:14 37.0 C 77 15 108/67 98 Room Air 09/15/23 04:02 36.3 C L 92 H 16 96/62 L 98 Room Air PG Care Time/CCT Total # of Minutes Spent Total Time Spent with Patient: Total time spent is greater than 50% in coordination of care (as documented) at patient's floor/unit and/or counseling patient: Coding Level of Care Code 39295 Post Operative Follow-Up Diagnoses Acute cholecystitis K81.0
[2023-09-15] MEDS: oxyCODONE HCL IR 5 MG TAB (IMMEDIATE RELEASE) PO PRN ×2 (12:59→21:21)
[2023-09-16 06:34] LABS: Basophils # (auto) 0.03 K/uL (0.00-0.20); Basophils % (auto) 0.4 %; Eosinophils # (auto) 0.14 K/uL (0.00-0.50); Eosinophils % (auto) 1.8 %; Hematocrit (blood only) 31.8 % (37.0-47.0); Hemoglobin 10.5 g/dl (12.0-16.0); Immature Granulocytes # (auto) 0.03 K/uL (0.01-0.20); Immature Granulocytes % (auto) 0.4 %; Lymphocytes # (auto) 2.55 K/uL (1.20-3.40); Lymphocytes % (auto) 32.7 %; Mean Corpuscular Hemoglobin 29.4 pg (25.0-34.0); Mean Corpuscular Volume 89.1 fL (80.0-100.0); Mean Platelet Volume 11.2 fL (9.4-12.4); Monocytes # (auto) 0.42 K/uL (0.11-0.59); Monocytes % (auto) 5.4 %; Neutrophils # (auto) 4.64 K/uL (1.40-6.50); Neutrophils % (auto) 59.3 %; Platelet Count 172 K/uL (130-400); RDW Coefficient of Variation 14.8 % (11.5-14.5); RDW Standard Deviation 48.2 fL (36.4-46.3); Red Blood Count 3.57 M/uL (4.20-5.40); White Blood Count 7.81 K/ul (4.8-10.8)
[2023-09-16 06:54] LABS: Albumin Globulin Ratio 1.6 (0.9-2); Albumin Level 3.3 gm/dl (3.4-5.0); BUN Creatinine Ratio 14.9 (10-20); Bilirubin,Total 0.5 mg/dl (0.2-1.0); Creatinine Clr Calc Pharmacy 98.3 ml/min; Est GFR (African American) 116.3 ml/min; Est GFR (Non-African American) 100.4 ml/min; Globulin 2.1 gm/dl (2.5-4.0); Potassium 3.6 mmol/L (3.5-5.1); Total Protein 5.4 gm/dl (6.0-8.3)
[2023-09-16] MEDS: ACETAMINOPHEN 325 MG TAB PO PRN (07:19)
--- NOTE | 2023-09-16 07:32 | Surgery Progress Note ---
Date of Service September 16, 2023 Assessment & Plan (1) Acute cholecystitis: Plan: POD [address] Conley Pt feeling ok, reports CELESTE this am took PO tylenol abd pain as expected, tolerable, abd soft, incisions CDI dermabond denies cp, sob, fever, chills, n.v LFT downtrending , CBC wnl, VSS Patient stable for d/c , f/u in 2 wks o/p Admission and Anticipated Discharge Date Admission Date: September 14, 2023 Subjective Pt feeling ok, reports CELESTE this am took PO tylenol abd pain as expected, tolerable denies cp, sob, fever, chills, n.v Review of Systems Constitutional: no fever and no chills Respiratory: no dyspnea Cardiovascular: no chest pain Gastrointestinal: + abdominal pain; no nausea and no vomit ing Genitourinary: no dysuria Musculoskeletal: no muscle weakness Integumentary: no rash Physical Exam Physical Exam: alert oriented pleasant Constitutional: well developed, cooperative and comfortable; no acute distress ENMT: external ear and nose normal, oropharynx normal Neck: trachea midline, no thyromegaly Respiratory: normal respiratory effort and able to speak in complete sentences; no respiratory distress Cardiovascular: Rate/Rhythm: regular rate Gastrointestinal (Abdomen): Inspection/Auscultation: + abdominal surgical incision (cdi, dermabond); abdomen not distended Percussion/Palpation: + abdomen tender and abdomen soft; no guarding Musculoskeletal: no cyanosis or clubbing, extremities motor strength 5/5 Skin: no rashes, warm and dry Psychiatric: A+Ox3, euthymic affect Results & Data Vital Signs (Past 12 Hours) Vital Signs Temp Pulse Resp BP Pulse Ox O2 Del Method 09/16/23 07:03 98.6 F 80 15 106/66 96 Room Air 09/15/23 20:15 97.7 F 81 16 110/73 99 Room Air Results Complete Blood Count Results: RBC 3.57 M/uL (4.20-5.40) L 09/16/23 WBC 7.81 K/ul (4.8-10.8) 09/16/23 Hgb 10.5 g/dl (12.0-16.0) L 09/16/23 Hct 31.8 % (37.0-47.0) L 09/16/23 Plt Count 172 K/uL (130-400) 09/16/23 Results CMP Results: Na 140 mmol/L (136-145) 09/16/23 K 3.6 mmol/L (3.5-5.1) 09/16/23 Cl 110 mmol/L (98-107) H 09/16/23 CO2 25 mmol/L (21-32) 09/16/23 Anion Gap 5 (3-11) 09/16/23 BUN 10 mg/dl (6-23) 09/16/23 Creatinine 0.67 mg/dl (0.6-1.2) 09/16/23 Estimated GFR ( Amer) 116.3 ml/min 09/16/23 Estimated GFR (Non-Af Amer) 100.4 ml/min 09/16/23 BUN/Creatinine Ratio 14.9 (10-20) 09/16/23 Glu 82 mg/dl (70-99(Fasting)) 09/16/23 Ca 8.0 mg/dl (8.6-10.3) L 09/16/23 Total Bilirubin 0.5 mg/dl (0.2-1.0) 09/16/23 AST 128 U/L (13-39) H 09/16/23 ALT 265 U/L (7-52) H 09/16/23 Alkaline Phosphatase 90 U/L (34-104) 09/16/23 TP 5.4 gm/dl (6.0-8.3) L 09/16/23 Albumin 3.3 gm/dl (3.4-5.0) L 09/16/23 Globulin 2.1 gm/dl (2.5-4.0) L 09/16/23 Albumin/Globulin Ratio 1.6 (0.9-2) 09/16/23 PG Care Time/CCT Total # of Minutes Spent Total Time Spent with Patient: Total time spent is greater than 50% in coordination of care (as documented) at patient's floor/unit and/or counseling patient: Coding Level of Care Code 84822 Post Operative Follow-Up Diagnoses Acute cholecystitis K81.0
--- NOTE | 2023-09-16 12:11 | Discharge Summary ---
Date of Service September 16, 2023 Admission HPI Per Admitting Provider This is a 53-year-old female who presented to the emergency department secondary to abdominal pain. She notes that the pain is primary located in the epigastric region and also the right upper quadrant. She notes that this happened several hours after eating her evening meal. She had associated nausea and vomiting but did not have any fevers. She notes that the pain did not radiate and she does not note any modifying factors other than it was relieved with some medicines administered in the emergency department. Asked patient if she has had any postprandial pain over the past several weeks to months which she denied. She has had prior abdominal surgeries in the form of 3 C-sections as well as a hysterectomy. Since arrival to hospital patient has had labs and imaging which independent reviewed. A chest x-ray did not show any evidence of pneumonia. An EKG showed sinus rhythm without changes indicative of acute ischemia. Patient had a gallbladder ultrasound. This showed cholelithiasis and trace pericholecystic fluid. There is no gallbladder wall thickening, however the gallbladder did appear distended. There is no biliary ductal dilatation. Interpreting radiologist felt that these findings potentially represent early acute cholecystitis. Labs include CBC white blood cell count was elevated 11.7. Hemoglobin, hematocrit, platelet count are all normal. Chemistry profile showed sodium and potassium along with BUN and creatinine were normal. There is no elevation of patient's LFTs or lipase. test was negative. At the time of my interview the patient did complain of some residual abdominal pain she was in no distress. Concerning past medical history she denies any medical problems Concerning past surgical history surgeries as listed above Concerning social history she does not smoke Principal Diagnosis acute cholecystitis Discharge Exam alert oriented pleasant Constitutional well developed, cooperative and comfortable; no acute distress ENMT external ear and nose normal, oropharynx normal Neck trachea midline, no thyromegaly Respiratory normal respiratory effort and able to speak in complete sentences; no respiratory distress Cardiovascular Rate/Rhythm: regular rate Gastrointestinal (Abdomen) Inspection/Auscultation: + abdominal surgical incision (cdi, dermabond); abdomen not distended Percussion/Palpation: + abdomen tender and abdomen soft; no guarding Musculoskeletal no cyanosis or clubbing, extremities motor strength 5/5 Skin no rashes, warm and dry Psychiatric A+Ox3, euthymic affect Discharge Data Allergies Allergy/AdvReac Type Severity Reaction Status Date / Time No Known Allergies Allergy Unknown Verified 09/14/23 03:14 Consultations 09/14/23 03:45 ED Decision to Admit Stat Procedures Performed Operation Date: 09/14/23 10:30 Actual Procedures p Laparoscopic Cholecystectomy - Kranthi Conley DO, FACS Ordered Studies 09/14/23 01:48 US gallbladder Stat [facility] [address], [place] [phone] Ultrasound Report Patient: AYSE COLMENARES Admit Date: 09/14/23 MR#: [id number] Address1: [facility] Acct ID:[id number] Address2: Date: 1970 [facility] Zip: [place] [address] Age: 53 Location: ED Sex: F Room/Bed: Att Phy: Diagnosis: ABD PAIN Darcie Phy: Marc Tobin MD Service Date: 09/14/23 Fam Phy: Interpreting Phy: Ramon Hanson MDAdmit Phy: Ordering Phy: Prachi Ochoa PA-C cc: ~ Exam(s): US GALLBLADDER EXAM: US Abdomen Limited, Gallbladder CLINICAL HISTORY: Reason for exam: ruq pain. TECHNIQUE: Real-time ultrasound of the right upper quadrant with image documentation. COMPARISON: No relevant prior studies available. FINDINGS: Gallbladder: Cholelithiasis trace pericholecystic fluid. Gallbladder wall is within normal limits. Gallbladder is distended. Common bile duct: Unremarkable as visualized. No stones. No dilation. Pancreas: Unremarkable as visualized. IMPRESSION: Findings equivocal for early acute cholecystitis. Clinical correlation recommended Electronically signed by: Ramon Hanson MD 09/14/23 03:29 AM Dictated: 09/14/23 0329 Transcribed: 09/14/23 0329 Hospital Course (1) Acute cholecystitis: Patient presented to [facility] ER with complaint of abdominal pain. An ultrasound of the gallbladder showed early acute cholecystitis. She underwent a Laparoscopic Cholecystitis on 09/14/[address] Conley and was admitted to the hospital post operatively for care and observation. Her diet was advanced and tolerated without nausea and vomiting, however on post operative day one it was noted that she had a rise in her liver function tests. She agreed to stay another day for monitoring and evaluation. On post operative day two, her liver function tests were down trending, her WBC remained WNL, she was tolerating a diet, her post operative port sites showed no s/s of infection, VSS, and she was deem stable for discharge on 09/16/23. Post operative instructions and follow up appointments reviewed, and all questions answered. Total Time Total Time Spent Total Time Spent (In Minutes): 30 Discharge Plan Discharge Items Patient Disposition: Home - Self-Care Reason For Visit: GENEVIEVE Discharge Diagnosis: laparoscopic cholecystectomy Condition on Discharge: Good Activity: Per Instructions section Lifting: No more than 10 pounds Bathing Comment: may shower starting 09/15/23; no soaking in tubs/pools x 2 weeks Exercise/Sports: Wait until after follow-up appointment Driving/Machine Use: no driving while on narcotics for pain Non-emergency contact: Surgeon Call non-emergency contact if: you have any medication questions, your symptoms worsen, your pain is not controlled, you have a fever, your temperature is above 101.5, your wound has increased redness, your wound has increased drainage and your wound pain has increased Follow-up/Referrals: Kranthi Conley DO, FACS [Physician] - (please call to schedule follow up in clinic within 2 weeks) Marc Tobin MD [Primary Care Provider] - Diet: Regular Addtl Attending Provider Instructions: You have skin glue over your incisions called dermabond. you may shower with this on. It will tend to dissolve and fall off within a couple weeks. Do not pick at the skin glue You may purchase Tylenol and/or Ibuprofen over the counter if needed for additional pain control over the next few days. Take per manufacturers instructions Pending Studies at Discharge: Yes Studies:: surgical pathology Stand-Alone Forms: [facility], Pain - Opioid Pain Management, Smok ing Cessation Medications and DC Order Prescriptions: New oxycodone 5 mg tablet 5 - 10 mg PO .[id number] PRN (Reason: pain, for initial therapy, max 6 tabs per day) Qty: 15 0RF Continued Mounjaro 10 mg/0.5 mL pen injector 10 mg SUBCUT DIRECTED Rx Instructions: PER PT "WEANING OFF MEDICATION, HAVEN'T TAKEN FOR 2 WEEKS". Discharge Orders: Discharge Order (Routine); Ordered 09/16/23 Ordered By: Robbin Talbot/Other Patient Handouts: Cholecystectomy Dc Admission Data Admit Date/Time: 09/14/23 03:59 Attending Provider: Kranthi Conley Admit Provider: Kranthi Conley Primary Care Provider: Marc Tobin Other Providers: Kranthi Conley Other Interventions: Discharge Summary Assessment (RN) Last Done: 09/16/23 07:34 Supervising Physician Co-Signing Physician Notes See today's progress note for full details. Admitted with suspicion for cholecystitis, plan for laparoscopic cholecystectomy, possible robotic Coding Level of Care Code 55243 IN/OBS DISCH 30 MIN/LESS Diagnoses Acute cholecystitis K81.0
== END 2023-09-16 09:24 | disposition home or self-care (01) | DRG 419 ==
LOC: ED 01:28 → 3E 03:59